=== PATIENT | female | born 1960 | race Caucasian/White ===

== ENCOUNTER 2016-11-12 09:03 | Emergency (ER) | payer BC ==
[~2016-11-12] VITALS: Ht 162.6 cm; Wt 66.5 kg
[~2016-11-12 09:03] MED LIST: FURO40TA4 PO; SPIR100T31 PO
[2016-11-12 09:06] VITALS: Ht 162.6 cm; Wt 66.5 kg
--- NOTE | 2016-11-12 09:19 | ERD ---
ER Documentation Chief Complaint Date/Time DATE: 11/12/16 TIME: 09:17 Chief Complaint ABDOMINAL PAIN,DISTENTION,Pt HAS LIVER CIRRHOSIS HPI 56-year-old female history of alcoholic cirrhosis with ascites. The patient presents for request of paracentesis. Patient denies any hematemesis or melena. She is also concerned about a ventral hernia but denies any significant pain and states that it is reducible. Last paracentesis several weeks ago. ROS All systems reviewed and are negative except as per history of present illness. Medications Home Meds Reported Medications Furosemide* (Furosemide*) 40 Mg Tablet, 40 MG PO DAILY, TAB 10/20/16 Spironolactone* (Spironolactone*) 100 Mg Tablet, 100 MG PO DAILY, TAB 07/21/16 Allergies Allergies: Coded Allergies: No Known Allergy (Unverified , 11/12/16) PMhx/Soc History of Surgery: Yes Anesthesia Reaction: No Hx Neurological Disorder: No Hx Respiratory Disorders: No Hx Cardiac Disorders: No Hx Psychiatric Problems: No Hx Miscellaneous Medical Probl: No Hx Alcohol Use: Yes (2yrs off alcohol) Hx Substance Use: No Hx Tobacco Use: No FmHx Family History: No diabetes Physical Exam Vitals Vital Signs Date Time Temp Pulse Resp B/P Pulse Ox O2 Delivery O2 Flow Rate FiO2 11/12/16 09:06 98.0 106 18 114/66 98 Physical Exam General: Well developed, well nourished, no acute distress Head: Normocephalic, atraumatic. Eyes: Pupils equally reactive, EOM intact ENT: Moist mucous membranes Neck: Supple, no lymphadenopathy Respiratory: Lungs clear bilaterally, no distress Cardiovascular: RRR, no murmurs, rubs, or gallops Abdominal: Soft, protuberant with fluid wave, large ventral hernia that is easily reducible, nontender no peritonitis : Deferred MSK: No edema, no unilateral swelling, 5/5 strength Neurologic: Alert and oriented, moving all extremities, normal speech, no focal weakness, no cerebellar signs Skin: No rash Psych: Normal mood Result Diagram: 11/12/1692811/12/16928 Results 24 hrs Laboratory Tests Test 11/12/16 09:29 Activated Partial Thromboplast Time 26.8Sec Alanine Aminotransferase (ALT/SGPT) 30IU/L Albumin 3.2g/dl Albumin/Globulin Ratio 1.03 Alkaline Phosphatase 98IU/L Anion Gap 15 Aspartate Amino Transf (AST/SGOT) 27IU/L Band Neutrophils % 1.0% Basophils # 10^3/ul Basophils % % Blood Morphology Comment Blood Urea Nitrogen 22mg/dl Calcium Level 8.5mg/dl Carbon Dioxide Level 21mmol/L Chloride Level 97mmol/L Creatinine 1.01mg/dl Differential Comment MANUAL DIFF Direct Bilirubin 0.00mg/dl Eosinophils # 0.010^3/ul Eosinophils % 1.0% Globulin 3.10g/dl Glucose Level 100mg/dl Hematocrit 22.0% Hemoglobin 6.9g/dl INR International Normalized Ratio 1.03 Indirect Bilirubin 0.4mg/dl Lymphocytes # 0.610^3/ul Lymphocytes % 13.0% Mean Corpuscular Hemoglobin 21.0pg Mean Corpuscular Hemoglobin Concent 31.3g/dl Mean Corpuscular Volume 67.1fl Mean Platelet Volume 6.7fl Monocytes # 0.010^3/ul Monocytes % 1.0% Neutrophils # 4.110^3/ul Neutrophils % 84.0% Nucleated Red Blood Cells # 10^3/ul Nucleated Red Blood Cells % 1.0/100WBC Platelet Count 12359^3/UL Potassium Level 4.6mmol/L Prothrombin Time 13.5Sec Prothrombin Time Ratio 1.1 Red Blood Count 3.2810^6/ul Red Cell Distribution Width 20.5% Sodium Level 128mmol/L Total Bilirubin 0.4mg/dl Total Protein 6.3g/dl White Blood Count 4.910^3/ul Current Medications Medications (Trade) Dose Ordered Sig/Josesito Route PRN Reason Start Time Stop Time Status Last Admin Dose Admin Lidocaine (Xylocaine 1% (Mpf)) 5 ml STK-MED ONCE .ROUTE 11/12/16 11:07 11/12/16 11:08 DC 11/12/16 11:34 Procedures/MDM EKG, MONITORS, & DIAGNOSTIC IMAGING: Large volume therapeutic paracentesis performed by interventional radiology. LAB INTERPRETATION: Anemia that is consistent with baseline. MEDICAL DECISION MAKING: The patient presents with abdominal ascites likely secondary to cirrhosis. Patient does not exhibit any signs or symptoms concerning for complications of cirrhosis such as GI bleed, hepatic encephalopathy or spontaneous bacterial peritonitis. There is no indication currently for diagnostic paracentesis. The patient will benefit from large volume therapeutic paracentesis by interventional radiology. If the patient remains stable without evidence of hemodynamic compromise secondary to fluid shifts the patient can be safely discharged home with close primary care and hepatology follow-up. The patient also has a large reducible ventral hernia. No evidence of incarceration or strangulation ER COURSE: The patient had successful large volume therapeutic paracentesis. The patient remained hemodynamically stable and otherwise well-appearing. The patient is safe for discharge home. I recommended blood transfusion for the patient given persistent anemia. The patient requested not have transfusion. She would like to follow-up with her primary care physician. She understands the risks, benefits, alternatives. I kept the patient and/or family informed of laboratory and diagnostic imaging results throughout the emergency room course. DISPOSITION PLAN: We discussed follow up with the patient's primary care doctor within 24 to 48 hours as needed. We also discussed return to the emergency room for worsening symptoms or worsening condition. Discharge Medications: None Departure Diagnosis: Primary Impression: Ascites Ascites type: due to alcoholic cirrhosis Qualified Code: K70.31 - Ascites due to alcoholic cirrhosis Additional Impressions: Ventral hernia Obstruction and gangrene presence: without obstruction or gangrene Qualified Code: K43.9 - Ventral hernia without obstruction or gangrene Anemia Anemia type: unspecified type Qualified Code: D64.9 - Anemia, unspecified type Condition: Stable RICKY JHA MD Nov 12, 2016 09:19
[2016-11-12 10:04] LABS: ALBUMIN 3.2 g/dl (3.3-4.9); POTASSIUM 4.6 mmol/L (3.5-5.1)
[2016-11-12 10:05] LABS: INR 1.03; PROTIME 13.5 Sec (12.2-14.2); PT RATIO 1.1
[2016-11-12 10:06] LABS: CREATININE 1.01 mg/dl (0.44-1.00); PARTIAL THROMBOPLASTIN TIME 26.8 Sec (25.0-35.0)
[2016-11-12 10:07] LABS: ALBUMIN/GLOBULIN RATIO 1.03; BILIRUBIN,INDIRECT 0.4 mg/dl (0-1.1); BILIRUBIN,TOTAL 0.4 mg/dl (0.2-1.3); CALCIUM 8.5 mg/dl (8.4-10.2); TOTAL PROTEIN 6.3 g/dl (6.1-8.1)
[2016-11-12 10:11] LABS: MEAN CORPUSCULAR HGB CONC 31.3 g/dl (32.0-37.0); MEAN CORPUSCULAR VOLUME 67.1 fl (82.0-101.0); MEAN PLATELET VOLUME 6.7 fl (7.4-10.4); PLATELET COUNT 166 10^3/UL (140-440); RED BLOOD COUNT 3.28 10^6/ul (4.20-5.40); RED CELL DISTRIBUTION WIDTH 20.5 % (11.5-14.5); UNCORRECTED WBC 4.9 10^3/ul (4.8-10.8); WHITE BLOOD COUNT 4.9 10^3/ul (4.8-10.8)
[2016-11-12 10:15] LABS: CONDITION 1; HEMOGLOBIN 6.9 g/dl (12.0-16.0); LH ANALYZER COMMENTS 1
[2016-11-12] MEDS ORDERED: LIDOCAINE 1% (MPF) 5 ML VIAL ONE (11:07)
[2016-11-12 11:39] LABS: LYMPHOCYTES # 0.6 10^3/ul (0.8-2.9); NEUTROPHIL # 4.1 10^3/ul (1.6-7.5)
--- NOTE | 2016-11-12 11:44 | RADRPT ---
PROCEDURE: US guided paracentesis Abdomen. CLINICAL INDICATION: Patient experiencing Abdominal Pain TECHNIQUE: Multiple real-time images were acquired of the patient's abdomen and retroperitoneum ut ilizing a high resolution transducer. COMPARISON: None FINDINGS: There is a [id number] volume of ascites. The skin in the right lower quadrant was marked and prepped and draped in usual sterile fashion. Fo llowing local injection of Xylocaine, the 10-Japanese catheter was introduced into the peritoneal cavi ty using trocar technique. 8800 cc of clear yellow fluid was collected. The catheter was removed. The patient tolerated the procedure well. IMPRESSION: Ultrasound-guided paracentesis yielding 8800 cc of clear yellow fluid. .Don Walker MD, MD Date Time Electronically viewed and signed by .Don Walker MD, on 11/12/2016 11:44 .A/
[2016-11-12 12:24] VITALS: BP 100/59; PULSE 97; RESP 18
== END 2016-11-12 12:25 | disposition home or self-care (01) ==
LOC: E/R 09:03
DX: K70.31 Alcoholic cirrhosis of liver with ascites (principal); K43.9 Ventral hernia without obstruction or gangrene; D64.9 Anemia, unspecified
CPT/HCPCS: 36415; 80053; 85025; 85610; 85730; Z7502; Z7610

== ENCOUNTER 2016-11-27 17:08 | Emergency (ER) | payer BC ==
[~2016-11-27] VITALS: Wt 78.0 kg
[2016-11-27 18:01] LABS: HEMATOCRIT 23.8 % (37.0-47.0); HEMOGLOBIN 7.5 g/dl (12.0-16.0); MEAN CORPUSCULAR HEMOGLOBIN 20.4 pg (29.0-33.0); MEAN CORPUSCULAR HGB CONC 31.4 g/dl (32.0-37.0); MEAN CORPUSCULAR VOLUME 65.1 fl (82.0-101.0); MEAN PLATELET VOLUME 6.9 fl (7.4-10.4); PLATELET COUNT 179 10^3/UL (140-440); RED BLOOD COUNT 3.66 10^6/ul (4.20-5.40); RED CELL DISTRIBUTION WIDTH 20.5 % (11.5-14.5); UNCORRECTED WBC 6.2 10^3/ul (4.8-10.8); WHITE BLOOD COUNT 6.2 10^3/ul (4.8-10.8)
[2016-11-27 18:05] LABS: CONDITION 1; LH ANALYZER COMMENTS 1
[2016-11-27 18:15] LABS: ALBUMIN 3.4 g/dl (3.3-4.9)
[2016-11-27 18:16] LABS: CHLORIDE 92 mmol/L (97-110); INR 1.02; PROTIME 13.4 Sec (12.2-14.2); SODIUM 125 mmol/L (135-144)
[2016-11-27 18:17] LABS: PARTIAL THROMBOPLASTIN TIME 26.1 Sec (25.0-35.0); POTASSIUM 5.2 mmol/L (3.5-5.1)
[2016-11-27 18:18] LABS: ALKALINE PHOSPHATASE 118 IU/L (42-121); ANION GAP 15 (8-16); ASPARTATE AMINO TRANSFERASE 28 IU/L (15-46); BILIRUBIN,INDIRECT 0.5 mg/dl (0-1.1); BILIRUBIN,TOTAL 0.5 mg/dl (0.2-1.3); CARBON DIOXIDE 23 mmol/L (21-31); CREATININE 1.08 mg/dl (0.44-1.00); TOTAL PROTEIN 6.8 g/dl (6.1-8.1)
[2016-11-27 18:19] LABS: ALANINE AMINOTRANSFERASE 30 IU/L (13-69); CALCIUM 8.7 mg/dl (8.4-10.2); GLUCOSE 94 mg/dl (70-220)
[2016-11-27 18:20] LABS: BLOOD UREA NITROGEN 19 mg/dl (7-20)
[2016-11-27 18:33] LABS: TROPONIN-I < 0.012 ng/ml (0.00-0.12)
[2016-11-27 18:34] VITALS: TEMP 98.3
[2016-11-27 18:41] LABS: BASOPHIL # 0.1 10^3/ul (0.0-0.1); LYMPHOCYTES # 0.8 10^3/ul (0.8-2.9); MONOCYTE # 0.6 10^3/ul (0.3-0.9); NEUTROPHIL # 4.8 10^3/ul (1.6-7.5)
[2016-11-27 20:04] VITALS: BP_DIAS 74
[2016-11-27] MEDS ORDERED: NA POLYST SULFON 15 GM/60 ML BTL PO ONE (20:30)
[2016-11-27] MEDS ORDERED: FUROSEMIDE 20 MG INJ IV ONE (20:30)
--- NOTE | 2016-11-27 21:35 | ERD ---
ER Documentation Chief Complaint Date/Time DATE: 11/27/16 TIME: 21:31 Chief Complaint ABD SWELLING AND POSSIBLE BLOOD TRANS PER MD HPI 56-year-old presents sent in by her primary doctor for possible blood transfusion. Her hemoglobin level was low last time she was in the hospital she refused transfusion. Her doctor explained to her that it could be life- saving. I reviewed her EMR and her hemoglobin level 6.9 on last visit. She completely denies any lightheadedness, generalized weakness, fever or chills. She states that she feels quite well. She does have chronic liver disease and has good follow-up with both hepatology and primary care doctor. ROS All systems reviewed and are negative except as per history of present illness. Medications Home Meds Reported Medications Furosemide* (Furosemide*) 40 Mg Tablet, 40 MG PO DAILY, TAB 10/20/16 Spironolactone* (Spironolactone*) 100 Mg Tablet, 100 MG PO DAILY, TAB 07/21/16 Allergies Allergies: Coded Allergies: No Known Allergy (Unverified , 11/27/16) PMhx/Soc History of Surgery: Yes (hernia) Anesthesia Reaction: No Hx Neurological Disorder: No Hx Respiratory Disorders: No Hx Cardiac Disorders: No Hx Psychiatric Problems: No Hx Miscellaneous Medical Probl: Yes (cirrhosis) Hx Alcohol Use: Yes (2yrs off alcohol) Hx Substance Use: No Hx Tobacco Use: No Smoking Status: Never smoker Physical Exam Vitals Vital Signs Date Time Temp Pulse Resp B/P Pulse Ox O2 Delivery O2 Flow Rate FiO2 11/27/16 20:04 102 16 100/74 100 Room Air 11/27/16 18:34 98.3 90 16 90/76 100 Room Air 11/27/16 17:13 98.0 108 16 100/69 99 Physical Exam Const: [] No distress Head: Atraumatic Eyes: Normal Conjunctiva ENT: Normal External Ears, Nose and Mouth. Neck: Full range of motion..~ No meningismus. Resp: Clear to auscultation bilaterally Cardio: Regular rate and rhythm, no murmurs Abd: Soft, non tender, moderate lower abdominal distention there is still soft and not firm or taut, normal bowel sounds Skin: No petechiae or rashes Back: No midline or flank tenderness Ext: No cyanosis, or edema Neur: Awake and alert and oriented 3, no focal deficits Psych: Normal Mood and Affect Result Diagram: 11/27/16 1739 11/27/16 1739 Results 24 hrs Laboratory Tests Test 11/27/16 17:39 Activated Partial Thromboplast Time 26.1Sec Alanine Aminotransferase (ALT/SGPT) 30IU/L Albumin 3.4g/dl Albumin/Globulin Ratio 1.00 Alkaline Phosphatase 118IU/L Anion Gap 15 Aspartate Amino Transf (AST/SGOT) 28IU/L Basophils # 0.110^3/ul Basophils % 1.0% Blood Morphology Comment Blood Urea Nitrogen 19mg/dl Calcium Level 8.7mg/dl Carbon Dioxide Level 23mmol/L Chloride Level 92mmol/L Creatinine 1.08mg/dl Direct Bilirubin 0.00mg/dl Globulin 3.40g/dl Glucose Level 94mg/dl Hematocrit 23.8% Hemoglobin 7.5g/dl INR International Normalized Ratio 1.02 Indirect Bilirubin 0.5mg/dl Lipase 235U/L Lymphocytes # 0.810^3/ul Lymphocytes % 13.0% Mean Corpuscular Hemoglobin 20.4pg Mean Corpuscular Hemoglobin Concent 31.4g/dl Mean Corpuscular Volume 65.1fl Mean Platelet Volume 6.9fl Monocytes # 0.610^3/ul Monocytes % 9.0% Neutrophils # 4.810^3/ul Neutrophils % 77.0% Platelet Count 40099^3/UL Potassium Level 5.2mmol/L Prothrombin Time 13.4Sec Prothrombin Time Ratio 1.0 Red Blood Count 3.6610^6/ul Red Cell Distribution Width 20.5% Sodium Level 125mmol/L Total Bilirubin 0.5mg/dl Total Protein 6.8g/dl Troponin I < 0.012ng/ml White Blood Count 6.210^3/ul Current Medications Medications (Trade) Dose Ordered Sig/Josesito Route PRN Reason Start Time Stop Time Status Last Admin Dose Admin Furosemide (Lasix) 20 mg ONCE ONCE IV 11/27/16 20:30 11/27/16 20:31 DC 11/27/16 20:19 Sodium Polystyrene Sulfonate (Kayexalate) 30 gm ONCE ONCE PO 11/27/16 20:30 11/27/16 20:31 DC 11/27/16 20:19 Procedures/MDM Patient with chronic ascites secondary to cirrhosis with chronic anemia. She stated that she would agree to a transfusion as her doctor says so but she would really not like to have one. She believes the last transfusion she had she had an allergic reaction. Fortunately her hemoglobin is increasing. Because she is currently asymptomatic and hesitant to have any transfusion she agrees with discharge at this time. She also has mild mild hypokalemia and was given 20 mg of Lasix as well as Kayexalate in the emergency room. She has chronic hyponatremia and has no neurological symptoms or nausea or vomiting. And a discharge her with instructions to speak with her primary care doctor and her senior environmental consultant about possibly obtaining paracenteses as an outpatient. She does not have any significant pain or need a paracentesis at this time. Departure Diagnosis: Primary Impression: Ascites Additional Impressions: Anemia Hyponatremia Hyperkalemia Patient Instructions: Anemia, Hyperkalemia, Ascites Additional Instructions: Call your primary care doctor TOMORROW for an appointment during the next 1-2 days. Call you doctor and your PAUNCH TRIMMER so they can arrange appropriate outpatien PARACENTESIS follow up. See the doctor sooner or return here if your condition worsens before your appointment time. DONNA ZAMORA DO Nov 27, 2016 21:35
[2016-11-27 21:37] VITALS: BP_SYST 84; PULSE 92; RESP 16
== END 2016-11-27 21:37 | disposition home or self-care (01) ==
LOC: E/R 17:08
DX: R18.8 Other ascites (principal); D64.9 Anemia, unspecified; E87.1 Hypo-osmolality and hyponatremia; E87.5 Hyperkalemia; R40.2142 Coma scale, eyes open, spontaneous, at arrival to emergency department; R40.2252 Coma scale, best verbal response, oriented, at arrival to emergency department; R40.2362 Coma scale, best motor response, obeys commands, at arrival to emergency department; K74.60 Unspecified cirrhosis of liver
CPT/HCPCS: 36415; 80053; 83690; 84484; 85025; 85610; 85730; 86850; 86900; 86901; 96374; 99284; J1940; Z7610

== ENCOUNTER 2016-12-09 15:03 | Emergency (ER) | payer BC ==
[~2016-12-09] VITALS: Wt 65.5 kg
--- NOTE | 2016-12-09 22:50 | ERA ---
ER Documentation Chief Complaint Date/Time DATE: 12/09/16 TIME: 22:49 Chief Complaint Abdominal distention HPI The patient is a 56-year-old female, presenting to the ER because of abdominal distention for the last 3 days. She had similar symptoms previously from recurrent ascites and required abdominal paracentesis. Last abdominal paracentesis was November 12, 2016. She denies fever, chills, neck pain, chest pain, nausea, vomiting, dysuria, diarrhea. She does not smoke, her last drink was about 2 years ago Past medical history: Cirrhosis, chronic kidney disease, anemia, portal hypertension, umbilical hernia Past surgical history: Multiple abdominal paracentesis ROS All systems reviewed and are negative except as per history of present illness. Medications Home Meds Reported Medications Furosemide* (Furosemide*) 40 Mg Tablet, 40 MG PO DAILY, TAB 10/20/16 Spironolactone* (Spironolactone*) 100 Mg Tablet, 100 MG PO DAILY, TAB 07/21/16 Allergies Allergies: Coded Allergies: No Known Allergy (Unverified , 11/27/16) PMhx/Soc History of Surgery: Yes (hernia) Anesthesia Reaction: No Hx Neurological Disorder: No Hx Respiratory Disorders: No Hx Cardiac Disorders: No Hx Psychiatric Problems: No Hx Miscellaneous Medical Probl: Yes (cirrhosis) Hx Alcohol Use: Yes (2yrs off alcohol) Hx Substance Use: No Hx Tobacco Use: No Smoking Status: Never smoker Physical Exam Vitals Vital Signs Date Time Temp Pulse Resp B/P Pulse Ox O2 Delivery O2 Flow Rate FiO2 12/09/16 23:34 98.0 92 16 97/70 100 Room Air 12/09/16 15:12 97.1 91 20 104/66 100 Physical Exam Const: No acute distress. Head: Atraumatic. Eyes: Normal Conjunctiva. ENT: Normal External Ears, Nose and Mouth. Neck: Full range of motion. No meningismus. Resp: Clear to auscultation bilaterally. Cardio: Regular rate and rhythm, no murmurs. Abd: Soft, ascites,, normal bowel sounds, non tender. Umbilical hernia Skin: No petechiae or rashes. Back: No midline or flank tenderness. Ext: No cyanosis, or edema. Neur: Awake and alert. No focal deficit Psych: Normal Mood and Affect. Result Diagram: 12/09/16 2330 12/09/16 2330 Results 24 hrs Laboratory Tests Test 12/09/16 23:23 12/09/16 23:30 Bedside Urine Blood Negative Bedside Urine Glucose (UA) Negative Bedside Urine Ketones (LAB) Negative Bedside Urine Leukocyte Esterase (L Negative Bedside Urine Nitrite (LAB) Negative Bedside Urine Protein (LAB) Negative Bedside Urine pH (LAB) 7.0 Activated Partial Thromboplast Time 28.1Sec Alanine Aminotransferase (ALT/SGPT) 30IU/L Albumin 3.7g/dl Albumin/Globulin Ratio 1.05 Alkaline Phosphatase 119IU/L Anion Gap 17 Aspartate Amino Transf (AST/SGOT) 32IU/L Basophils # 0.010^3/ul Basophils % 0.4% Blood Morphology Comment Blood Urea Nitrogen 18mg/dl Calcium Level 8.6mg/dl Carbon Dioxide Level 22mmol/L Chloride Level 90mmol/L Creatinine 0.92mg/dl Direct Bilirubin 0.00mg/dl Eosinophils # 0.210^3/ul Eosinophils % 3.3% Globulin 3.50g/dl Glucose Level 107mg/dl Hematocrit 25.0% Hemoglobin 7.9g/dl INR International Normalized Ratio 1.09 Indirect Bilirubin 0.5mg/dl Lipase 155U/L Lymphocytes # 0.810^3/ul Lymphocytes % 11.5% Mean Corpuscular Hemoglobin 20.2pg Mean Corpuscular Hemoglobin Concent 31.6g/dl Mean Corpuscular Volume 64.0fl Mean Platelet Volume 7.1fl Monocytes # 0.510^3/ul Monocytes % 7.0% Neutrophils # 5.610^3/ul Neutrophils % 77.8% Nucleated Red Blood Cells # 0.010^3/ul Nucleated Red Blood Cells % 0.0/100WBC Platelet Count 24830^3/UL Potassium Level 4.5mmol/L Prothrombin Time 14.1Sec Prothrombin Time Ratio 1.1 Red Blood Count 3.9010^6/ul Red Cell Distribution Width 20.4% Sodium Level 124mmol/L Total Bilirubin 0.5mg/dl Total Protein 7.2g/dl White Blood Count 7.310^3/ul Procedures/MDM MEDICAL MAKING DECISION: The patient is a 56-year-old female, presenting with recurrent ascites. The differential diagnoses considered include but are not limited to SBP, incarcerated/strangulated umbilical hernia, cholelithiasis, cholecystitis, cystitis, pancreatitis, hepatitis, gastritis, peptic ulcer disease, gastric ulcer, appendicitis, diverticulitis, cholangitis, choledocholithiasis, partial small bowel obstruction. Departure Diagnosis: Primary Impression: Ascites Additional Impressions: Umbilical hernia Hyponatremia Anemia Condition: Good Comments She was advised to return in the morning for abdominal paracentesis by radiology DINORAH CARDONA MD Dec 09, 2016 22:50
[2016-12-09 23:23] LABS: URINE BLOOD (Dip) POC Negative (NEGATIVE)
[2016-12-09 23:34] VITALS: TEMP 98
[2016-12-09 23:47] LABS: BASOPHILS % 0.4 % (0.0-2.0); EOSINOPHILS # 0.2 10^3/ul (0.0-0.5); EOSINOPHILS % 3.3 % (0.0-7.0); HEMOGLOBIN 7.9 g/dl (12.0-16.0); LYMPHOCYTES # 0.8 10^3/ul (0.8-2.9); LYMPHOCYTES % 11.5 % (15.0-51.0); MEAN CORPUSCULAR HEMOGLOBIN 20.2 pg (29.0-33.0); MEAN CORPUSCULAR HGB CONC 31.6 g/dl (32.0-37.0); MEAN PLATELET VOLUME 7.1 fl (7.4-10.4); MONOCYTE # 0.5 10^3/ul (0.3-0.9); NEUTROPHIL # 5.6 10^3/ul (1.6-7.5); NEUTROPHILS % 77.8 % (39.0-77.0); PLATELET COUNT 192 10^3/UL (140-440); RED CELL DISTRIBUTION WIDTH 20.4 % (11.5-14.5); UNCORRECTED WBC 7.3 10^3/ul (4.8-10.8); WHITE BLOOD COUNT 7.3 10^3/ul (4.8-10.8)
[2016-12-09 23:48] LABS: CONDITION 1; LH ANALYZER COMMENTS 1
[2016-12-09 23:55] LABS: INR 1.09; PARTIAL THROMBOPLASTIN TIME 28.1 Sec (25.0-35.0); PROTIME 14.1 Sec (12.2-14.2); PT RATIO 1.1
[2016-12-09 23:57] LABS: ALBUMIN 3.7 g/dl (3.3-4.9); POTASSIUM 4.5 mmol/L (3.5-5.1)
[2016-12-09 23:59] LABS: CREATININE 0.92 mg/dl (0.44-1.00)
[2016-12-10] LABS: ALBUMIN/GLOBULIN RATIO 1.05; BILIRUBIN,INDIRECT 0.5 mg/dl (0-1.1); BILIRUBIN,TOTAL 0.5 mg/dl (0.2-1.3); CALCIUM 8.6 mg/dl (8.4-10.2); TOTAL PROTEIN 7.2 g/dl (6.1-8.1)
[2016-12-10 00:38] VITALS: BP 92/66; PULSE 87; RESP 18
[2016-12-10] MEDS ORDERED: HYDR-906 PO (18:39)
[2016-12-10] MEDS ORDERED: ONDA4TAB8 PO (18:40)
== END 2016-12-10 00:39 | disposition home or self-care (01) ==
LOC: E/R 15:03
DX: R18.8 Other ascites (principal); K42.9 Umbilical hernia without obstruction or gangrene; E87.1 Hypo-osmolality and hyponatremia; D64.9 Anemia, unspecified; N18.9 Chronic kidney disease, unspecified
CPT/HCPCS: 36415; 80053; 81003; 83690; 85025; 85610; 85730; 99283

== ENCOUNTER 2016-12-10 11:34 | Emergency (ER) | payer BC ==
[~2016-12-10] VITALS: Ht 165.1 cm; Wt 67.0 kg
[2016-12-10 11:38] VITALS: Ht 165.1 cm; Wt 67.0 kg
--- NOTE | 2016-12-10 16:28 | ERD ---
ER Documentation Chief Complaint Date/Time DATE: 12/10/16 TIME: 16:25 Chief Complaint pt bib self with c/o swelling to abd, needs paracentesis HPI Patient is a 56-year-old female who came in last night to have paracentesis done for recurrent ascites. She had lab work done and was told to return today to have the paracentesis. She reports no change overnight since her discharge from the emergency room. She says she has had this recurrently and wonders how she can do this without having to come to the emergency room. She denies any chest pain, shortness of breath, nausea, vomiting, diarrhea, dysuria, hematuria , abnormal bleeding, bruises, or rashes. She says this is normally how she feels when she needs a paracentesis done. The remainder of the systems are negative. ROS All systems reviewed and are negative except as per history of present illness. Medications Home Meds Reported Medications Furosemide* (Furosemide*) 40 Mg Tablet, 40 MG PO DAILY, TAB 10/20/16 Spironolactone* (Spironolactone*) 100 Mg Tablet, 100 MG PO DAILY, TAB 07/21/16 Allergies Allergies: Coded Allergies: No Known Allergy (Unverified , 12/10/16) PMhx/Soc History of Surgery: Yes (abd hernia) Anesthesia Reaction: No Hx Neurological Disorder: No Hx Respiratory Disorders: No Hx Cardiac Disorders: No Hx Psychiatric Problems: No Hx Miscellaneous Medical Probl: Yes (cirrhosis) Hx Alcohol Use: Yes (sober for 2 years) Hx Substance Use: No Hx Tobacco Use: No Smoking Status: Never smoker FmHx Family History: No diabetes Physical Exam Vitals Vital Signs Date Time Temp Pulse Resp B/P Pulse Ox O2 Delivery O2 Flow Rate FiO2 12/10/16 11:38 98.3 111 18 118/73 98 Physical Exam Const: [] Well-developed well-nourished female sitting in the chair in no acute distress Head: Atraumatic normocephalic Eyes: Normal Conjunctiva ENT: Normal External Ears, Nose and Mouth. Neck: Full range of motion..~ No meningismus. Resp: Clear to auscultation bilaterally Cardio: Regular rate and rhythm, no murmurs Abd: Soft, grossly distended, no masses, rebound, or guarding, no tenderness to palpation, normal bowel sounds, a ascitic fluid wave Skin: No petechiae or rashes Back: No midline or flank tenderness Ext: No cyanosis, or edema Neur: Awake and alert oriented 3, GCS of 15 Psych: Normal Mood and Affect Results 24 hrs Current Medications Medications (Trade) Dose Ordered Sig/Josesito Route PRN Reason Start Time Stop Time Status Last Admin Dose Admin Lidocaine (Xylocaine 1% (Mpf)) 5 ml STK-MED ONCE .ROUTE 12/10/16 18:28 12/10/16 18:29 DC Procedures/MDM Patient presents requesting paracentesis. She had her lab work done last night which are reviewed. I have ordered the paracentesis to be done under ultrasound guidance. I have also advised her that she can discuss having paracentesis scheduled as an outpatient through interventional radiology by her primary care physician 1830: Patient is back from radiology. She has had her paracentesis and feels much better. She is hemodynamically stable and states she is ready for discharge.. Departure Diagnosis: Primary Impression: Ascites Ascites type: other type Qualified Code: R18.8 - Other ascites Condition: Stable Patient Instructions: Ascites Additional Instructions: Please call your primary care physician to discuss scheduling the paracentesis as an outpatient routinely. Return to the emergency department if at any time you develop fever, increasing abdominal pain, vomiting, or new or worsening symptoms. PARADISE JIN Dec 10, 2016 16:28
[2016-12-10] MEDS ORDERED: LIDOCAINE 1% (MPF) 5 ML VIAL ONE (18:28)
[2016-12-10] MEDS ORDERED: HYDR-906 PO (18:39)
[2016-12-10] MEDS ORDERED: ONDA4TAB8 PO (18:40)
--- NOTE | 2016-12-10 19:01 | RADRPT ---
PROCEDURE: Ultrasound guided paracentesis CLINICAL INDICATION: Ascites TECHNIQUE: The risks benefits and alternatives of the procedure were explained to the patient. In formed written consent was obtained. The patient understood the risks benefits and alternatives and wished to proceed with the procedure. A time out was performed. The overlying skin of the right lower quadrant of the abdomen was prepped and draped in the usual sterile fashion. Approximately 10 cc of lidocaine was injected locally for pain control. Utilizing ultrasound guidance, an 6-Chilean p aracentesis catheter was placed into the peritoneal cavity without difficulty. Fluid was drained i nto vacuum bottles. After completion of draining fluid, the catheter was removed and direct pressur e was applied to the puncture site. A compression bandage was then placed at the puncture site. e patient tolerated the procedure well without complication. The fluid was not sent to the lab fo r further analysis. Intravenous albumin was ordered by the referring physician. COMPARISON: None available FINDINGS: Surgeon: Rosalia CAMPO. Preprocedural diagnosis: Ascites. Postprocedural diagnosis: Ascites. Samples removed: 10,100 cc of clear yellow fluid was obtained. Complications: None. Estimated blood loss: 0 cc. Condition: Stable and unchanged. IMPRESSION: 1. Successful ultrasound-guided paracentesis. RPTAT: QQ .Roland Lindsey MD, MD Date Time Electronically viewed and signed by .Roland Lindsey MD, on 12/10/2016 19:01 .M/
[2016-12-10 19:27] VITALS: BP 122/65; PULSE 98; RESP 18
== END 2016-12-10 19:28 | disposition home or self-care (01) ==
LOC: E/R 11:34
DX: R18.8 Other ascites (principal); R40.2142 Coma scale, eyes open, spontaneous, at arrival to emergency department; R40.2252 Coma scale, best verbal response, oriented, at arrival to emergency department; R40.2362 Coma scale, best motor response, obeys commands, at arrival to emergency department
CPT/HCPCS: 99284; Z7610

== ENCOUNTER 2017-01-09 15:32 | Emergency (ER) | payer SELFPAY ==
[~2017-01-09] VITALS: Wt 65.5 kg
[~2017-01-09 15:32] MED LIST changes: +HYDR-906 PO; +ONDA4TAB8 PO
== END 2017-01-09 22:30 | disposition left against medical advice (07) ==
LOC: E/R 15:32
DX: Z53.21 Procedure and treatment not carried out due to patient leaving prior to being seen by health care provider (principal)

== ENCOUNTER 2017-01-10 11:55 | Emergency (ER) | payer SELFPAY ==
[~2017-01-10] VITALS: Ht 152.4 cm; Wt 76.0 kg
[2017-01-10 12:24] VITALS: Ht 152.4 cm; Wt 76.0 kg
== END 2017-01-10 19:30 | disposition left against medical advice (07) ==
LOC: E/R 11:55
DX: Z53.21 Procedure and treatment not carried out due to patient leaving prior to being seen by health care provider (principal)